=== PATIENT | female | born 1990 | race Two or more races ===

== ENCOUNTER 2019-10-13 00:11 | Emergency (ER) | payer OTHER ==
[~2019-10-13] VITALS: Ht 152.4 cm; Wt 90.7 kg
[2019-10-13] MEDS ORDERED: KETO10TA2 PO (02:55)
== END 2019-10-13 03:01 | disposition home or self-care (01) ==
LOC: ER 00:11
DX: R10.84 Generalized abdominal pain (principal)

== ENCOUNTER 2021-07-14 05:27 | Day surgery (SDC) | payer OTHER ==
[~2021-07-14] VITALS: Ht 152.4 cm; Wt 90.7 kg
[~2021-07-14 05:27] MED LIST: ACID REDUCER20 M1 PO; KETO10TA2 PO
[2021-07-14] MEDS ORDERED: ULTRACET PO (13:43)
== END 2021-07-14 18:00 | disposition home or self-care (01) ==
LOC: CIR.AMB 05:27
PROVIDERS: ATTEND Surgery
DX: N80.3 Endometriosis of pelvic peritoneum (principal); K21.9 Gastro-esophageal reflux disease without esophagitis